=== PATIENT | male | born 1955 | race Caucasian/White ===

== ENCOUNTER 2017-08-28 10:47 | Emergency (ER) | payer SELFPAY ==
[~2017-08-28] VITALS: Ht 195.6 cm; Wt 86.6 kg
--- NOTE | 2017-08-28 11:01 | ED NOSE COMPLAINT ---
History of Present Illness General Chief Complaint: Epistaxis/Nasal Foreign Body Stated Complaint: NOSE BLEED Source: patient Exam Limitations: no limitations Vital Signs & Intake/Output Vital Signs & Intake/Output Vital Signs Date Time Temp Pulse Resp B/P B/P Pulse O2 O2 Flow FiO2 Mean Ox Delivery Rate 08/28 1720 98.6 67 18 107/71 97 Room Air 08/28 1636 98.5 70 18 108/68 97 Room Air 08/28 1555 98.7 71 18 104/66 97 Room Air 08/28 1518 98.6 74 18 99/62 97 Room Air 08/28 1500 98.5 74 18 101/58 97 Room Air 08/28 1404 97.9 77 18 101/58 96 Room Air 08/28 1052 96.5 89 18 95/57 97 Room Air Room Air Allergies Coded Allergies: No Known Allergies (08/28/17) Reconcile Medications No Known Home Medications Triage Note: TRIAGE: 62 Y/O MALE PRESENTS C/O MULTIPLE COMPLAINTS: NOSE BLEEDS, WEIGHT LOSS X16 POUNDS IN 2 WEEKS, PALENESS. RX: AUGMENTIN FOR A SINUS INFECTION. BP 95/57. Triage Nurses Notes Reviewed? yes Onset: Abrupt Duration: intermittent Severity: severe Severity Numbers: 7 HPI: Patient is a 62-year-old male with a past medical history of deviated septum and a recent diagnosis of sinusitis where he was prescribed amoxicillin approximately 2 weeks ago where for the past 5-7 days she's had waxing and waning right-sided nosebleeds in which he was blowing his nose a lot for his sinus infection however he stopped using the amoxicillin due to diarrhea concerns where he states in the past few days the nosebleed continues to reoccur to the right side. Patient has associated symptoms of dizziness. Denies any anticoagulation use or trauma Patient states that he has not been eating and drinking well past 2 weeks where he has had weight loss Patient is a former smoker approximately 3 weeks ago States last bowel movement was in the last 24 hours no blood no melena (Geoff Moore) Past History Travel History Traveled to [place] past 21 day No Medical History Any Pertinent Medical History? 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 No (Geoff Moore) Review of Systems Review of Systems Constitutional: Reports: see HPI. EENTM: Reports: see HPI, epistaxis. Respiratory: Reports: no symptoms. Cardiovascular: Reports: no symptoms. GI: Reports: no symptoms. Genitourinary: Reports: no symptoms. Musculoskeletal: Reports: no symptoms. Skin: Reports: no symptoms. Neurological/Psychological: Reports: no symptoms. Hematologic/Endocrine: Reports: see HPI, bleeding. Immunologic/Allergic: Reports: no symptoms. All Other Systems: Reviewed and Negative (Geoff Moore) Physical Exam Physical Exam General Appearance: no apparent distress, alert, comfortable Head: atraumatic Eyes: Bilateral: normal appearance. Nose: active bleeding Mouth/Throat: normal mouth inspection, pharynx normal Neck: normal inspection Cardiovascular/Respiratory: normal breath sounds, normal peripheral pulses, regular rate/rhythm Gastrointestinal: NONTENDER ABDOMEN Neurologic/Psych: no motor/sensory deficits, awake, oriented x 3 Skin: intact, normal color Comments: RIGHT NARES, NOTED contralateral deviation of the septum with a noted 3 mm septal and mild active bleeding (Geoff Moore) Progress Differential Diagnoses I considered the following diagnoses in my evaluation of the patient: [ Hypotension, coagulation disorder, anterior epistasis posterior epistasis, CANCER] Plan of Care: Orders Procedure Date/time Status BLOOD PRODUCT PICKUP 08/28 1540 Active LEUKOCYTE POOR (PACKED CELLS) 08/28 1537 Active BLOOD PRODUCT PICKUP 08/28 1444 Active LEUKOCYTE POOR (PACKED CELLS) 08/28 1442 Active Add-on Test (ER Only) 08/28 1335 Active Telemetry/Patient Services Assistant 08/28 1321 Active PARTIAL THROMBOPLASTIN TIME 08/28 1321 Complete PROTHROMBIN TIME 08/28 1321 Complete EKG 08/28 1321 Active TYPE & SCREEN (NOT X-MATCH) 08/28 1321 Complete FIBRINOGEN LEVEL 08/28 1230 Complete COMPREHENSIVE METABOLIC PANEL 08/28 1141 Complete CBC WITHOUT DIFFERENTIAL 08/28 1140 Complete Laboratory Tests 08/28/17 1344: Anion Gap 8, Estimated GFR > 60, BUN/Creatinine Ratio 32.7 H, Glucose 110 H, Calcium 7.5 L, Total Bilirubin 1.8 H, AST 32, ALT 23, Alkaline Phosphatase 148 H, Total Protein 10.8 H, Albumin 2.3 L, Globulin 8.5 H, Albumin/Globulin Ratio 0.3 L 08/28/17 1230: PT 17.8 H, INR 1.63 H, APTT 32, Fibrinogen Activity 133 L, CBC w Diff MAN DIFF ORDERED, RBC 1.45 L, MCV 101.9 H, MCH 35.3 H, MCHC 34.6, RDW 14.8 H, MPV 8.9, Gran % 43.2, Lymphocytes % 52.6 H, Monocytes % 1.2 L, Eosinophils % 0.3, Basophils % 2.7 H, Absolute Granulocytes 0.8 L, Segmented Neutrophils 37 L, Band Neutrophils 1, Absolute Lymphocytes 1.0 L, Lymphocytes 56 H, Monocytes 6, Absolute Monocytes 0 L, Absolute Eosinophils 0, Absolute Basophils 0.1, Nucleated RBCs 4 H, Anisocytosis 1+ On initial examination patient had a moderate clot removed by me to the right nares, I did observe the source of the bleeding to the ER aspect of patient's septum to the right nares Patient was initially given let for approximately 10 minutes bleeding still existed then I used silver nitrate application to the bleeding site however bleeding still persisted in which then I placed a 4.5 cm Rhino Rocket to the right nares Due to patient's hypotension upon arrival and symptoms of dizziness blood work was ordered patient does have critical findings of pancytopenia Discussed patient with Dr. GRIFFIN who advised patient to be admitted to the ICU and he will consult and advised patient to have fibrinogen add-on blood work and to be right with transfusion of packed red blood cells I discussed critical findings with patient and family members were aware Discussed with ICU attending in which he advised patient to be transferred to [place] for critical findings. Discussed transfer to [place] to patient and family members who signed transfer paperwork Prior to patient receiving a bed at [place] the type and screen was matched where he received 1 unit of packed red blood cell prior to transfer Patient was hemodynamically stable upon transfer Dr. Eller was also aware patient and discussed transfer to [place] in which he had an accepting physician in which PT will go from ER to a bed placement 1 unit of packed red blood cells were transfused prior to transfer 1600- [place] had not called for a transfer acceptance to an open bed yet in which he was administered a second unit of packed red blood cells 1726- it is noted to me that nursing staff did receive a phone call from [place] in which there is a current bed order for patient Upon discharge patient was hemodynamically stable for transfer [facility] was notified Initial ED EKG: normal intervals, normal p-waves, 73 BPM,NSR (Geoff Moore) Departure Departure Disposition: OTHER [facility] ([facility]) Condition: Guarded Clinical Impression Primary Impression: Pancytopenia Secondary Impressions: Bleeding nose, Hypotension Departure Forms: Customer Survey General Discharge Information Prescriptions: Current Visit Scripts No Known Home Medications (Geoff Moore) PA/SQL SERVER DBA DEVELOPER Co-Sign Statement Statement: ED Attending supervision documentation- [X] I saw and evaluated the patient. I have also reviewed all the pertinent lab results and diagnostic results. I agree with the findings and the plan of care as documented in the PA's/SQL SERVER DBA DEVELOPER's documentation. [X] I have reviewed the ED Record and agree with the PA's/SQL SERVER DBA DEVELOPER's documentation. [] Additions or exceptions (if any) to the PAs/SQL SERVER DBA DEVELOPER's note and plan are summarized below: [Patient to be transferred to [facility] for workup for pancytopenia.] (Rafita PATE,Matthew Begum) Critical Care Note Critical Care Note Critical Care Time: 75-104 min (Geoff Moore)
[2017-08-28 12:50] LABS: ABSOLUTE BASOPHIL COUNT 0.1 /CUMM (0.0-0.2); ABSOLUTE EOSINOPHIL COUNT 0 /CUMM (0.0-0.7); ABSOLUTE GRANULOCYTE CT 0.8 /CUMM (1.4-6.5); ABSOLUTE MONOCYTE COUNT 0 /CUMM (0.10-0.60); BASOPHIL % 2.7 % (0.0-2.0); EOSINOPHIL % 0.3 % (0-5); GRANULOCYTE % 43.2 % (42.2-75.2); MEAN CORPUSCULAR HGB 35.3 PG (27.0-31.0); MEAN CORPUSCULAR HGB CONC 34.6 G/DL (33.0-37.0); MEAN CORPUSCULAR VOLUME 101.9 FL (80.0-94.0); MEAN PLATELET VOLUME 8.9 FL (7.4-10.4); RBC DISTRIBUTION WIDTH 14.8 % (11.5-14.5); RED BLOOD CELL CT 1.45 /CUMM (4.70-6.10)
[2017-08-28 13:11] LABS: HEMATOCRIT 14.8 % (42-52); PLATELET COUNT 11 /CUMM (130-400)
[2017-08-28 14:54] LABS: PT 17.8 SEC (9.4-12.5); PTT 32 SEC (25-37)
[2017-08-28 17:20] VITALS: BP 107/71
== END 2017-08-28 18:14 | disposition short-term general hospital (02) ==
LOC: ERH 10:47
PROVIDERS: Physician Assistant
DX: D61.818 Other pancytopenia (principal); R04.0 Epistaxis; I95.9 Hypotension, unspecified
CPT/HCPCS: 86920; 93005; 93010; 96361; 96365; 96375; 99291; P9016